=== PATIENT | female | born 1990 | race Caucasian/White ===

== ENCOUNTER 2017-10-16 14:52 | Emergency (ER) | payer MEDICAID ==
[~2017-10-16] VITALS: Ht 177.8 cm; Wt 96.0 kg
[~2017-10-16 14:52] MED LIST: BENT20TA PO; NEXP68IM; ZOFR4TAB3 PO
[2017-10-16 14:54] VITALS: BP 129/67; PULSE 140; RESP 15; TEMP 102.7; O2SAT 97
== END 2017-10-16 17:34 | disposition left against medical advice (07) ==
LOC: NED 14:52
DX: J11.1 Influenza due to unidentified influenza virus with other respiratory manifestations (principal)
CPT/HCPCS: 99281